=== PATIENT | female | born 1980 | race Hispanic/Latino ===

== ENCOUNTER 2017-04-15 21:16 | Emergency (ER) | payer BC, OTHER ==
[2017-04-15 23:12] LABS: Hematocrit 29.7 % (30.3-42.9); Hemoglobin 9.8 gm/dl (10.1-14.3); Mean Corpuscular HGB Conc 33 % (30-34); Mean Corpuscular Hemoglobin 27 pg (28-32); Mean Corpuscular Volume 82 fl (79-97); Platelet Count 201 K/mm3 (140-440); Red Blood Count 3.64 M/mm3 (3.65-5.03); Red Cell Distribution Width 17.1 % (13.2-15.2); White Blood Count 4.7 K/mm3 (4.5-11.0)
[2017-04-15 23:25] LABS: Anion Gap 14 mmol/L; Blood Urea Nitrogen 12 mg/dL (7-17); Carbon Dioxide 31 mmol/L (22-30); Chloride 101.6 mmol/L (98-107); Glucose 78 mg/dL (65-100); Potassium 4.1 mmol/L (3.6-5.0); Sodium 142 mmol/L (137-145)
[2017-04-15 23:40] LABS: Bacteria,Urine 1+ /HPF (Negative); Bilirubin,Urine NEG (Negative); Blood,Urine NEG (Negative); Ketones,Urine NEG (Negative); Leukocyte Esterase,Urine TR (Negative); Mucus,Urine 2+ /HPF; Nitrite,Urine NEG (Negative); Urobilinogen,Urine < 2.0 mg/dL (<2.0)
[2017-04-16] MEDS ORDERED: LASIX PO ONE (03:08)
[2017-04-16 03:23] LABS: Alanine Aminotransferase 17 units/L (7-56); Albumin 3.8 g/dL (3.9-5); Alkaline Phosphatase 65 units/L (35-129); Total Protein 7.6 g/dL (6.3-8.2)
[2017-04-16] MEDS ORDERED: TORADOL IM ONE (03:36)
[2017-04-16 03:42] LABS: Bilirubin,Direct < 0.2 mg/dL (0-0.2)
--- NOTE | 2017-04-16 03:51 | Emergency Department Report ---
ED Extremity Problem HPI - General Chief complaint: Extremity Injury, Lower Stated complaint: FEET AND LEGS SWELLING/HEADACHE/LEG PAIN Time Seen by Provider: 04/16/17 03:01 Source: patient Mode of arrival: Ambulatory Limitations: No Limitations - History of Present Illness Initial comments: 36 yo female the past medical history of heroin abuse presents to the hospital complaining of lower extremity edema 2 weeks. Patient states she has similar swelling earlier this summer but it went away after a few days. Patient denies of leg pain, travel, redness, or history of PE/DVT. Also denies shortness of breath or chest pain. Patient's patient was forced to detox from heroin one- month ago while in correction. Patient also complains of a frontal headache intermittently for the last 2 weeks as well. No reports of nausea, vomiting, abdominal pain, or abdominal distention. Severity scale (0 -10): 4 - Related Data Previous Rx's Medication Instructions Recorded Last Taken Type Doxycycline [Vibramycin CAP] 100 mg PO BID #28 capsule 12/27/14 Unknown Rx methylPREDNISolone [Medrol Dose 8 mg PO QAM #1 tab.ds.pk 12/27/14 Unknown Rx Ralph] Furosemide [Lasix] 20 mg PO QDAY #5 tablet 04/16/17 Unknown Rx Naproxen [Naprosyn TAB] 375 mg PO BID #20 tablet 04/16/17 Unknown Rx Allergies Allergy/AdvReac Type Severity Reaction Status Date / Time No Known Allergies Allergy Unverified 12/27/14 12:40 ED Review of Systems ROS: Stated complaint: FEET AND LEGS SWELLING/HEADACHE/LEG PAIN Other details as noted in HPI Comment: All other systems reviewed and negative Other: Constitutional: No fevers chills Eyes: No eye pain visual changes ENT: No ear pain or throat pain Neck: Denies pain Respiratory: Denies cough wheezing shortness of breath Cardiovascular: Denies chest pain, palpitations, syncope GI: Denies abdominal pain, nausea, vomiting, diarrhea : Denies dysuria, urinary frequency, or urgency. Per triage complains of intermittent vaginal spotting and a Mirena that is 3 years overdue for removal MSK: As per HPI Skin: Denies rash, lesions, erythema Neurologic: Denies headache, numbness, weakness Psychiatric: Denies suicidal ideation, hallucinations ED Past Medical Hx - Past Medical History Previous Medical History?: Yes Additional medical history: detoxed off of Heroin 1 month ago - Social History Smoking Status: Current Every Day Smoker - Medications Home Medications: Home Medications Medication Instructions Recorded Confirmed Last Taken Type Doxycycline [Vibramycin CAP] 100 mg PO BID #28 capsule 12/27/14 Unknown Rx methylPREDNISolone [Medrol Dose 8 mg PO QAM #1 tab.ds.pk 12/27/14 Unknown Rx Ralph] Furosemide [Lasix] 20 mg PO QDAY #5 tablet 04/16/17 Unknown Rx Naproxen [Naprosyn TAB] 375 mg PO BID #20 tablet 04/16/17 Unknown Rx ED Physical Exam - General Limitations: No Limitations - Other Other exam information: General: No limitations, patient is alert in no acute distress Head exam: Atraumatic, normocephalic Eyes exam: Normal appearance ENT: Moist mucous membrane, normal oropharynx Neck exam: Normal inspection, full range of motion, no meningismus nontender Respiratory exam: Clear to auscultation bilateral, no wheezes, rales, crackles Cardiovascular: Normal rate and rhythm, normal heart sounds Abdomen: Soft, nondistended, and nontender, with normal bowel sounds, no rebound, or guarding Extremity: Bilateral lower extremity edema worse at feet and ankle. Nonpitting , no calf tenderness, no erythema or warmth Back: Normal Inspection, full range of motion, no tenderness Neurologic: Patient initially drowsy and needed persistent arousal. She is to stay she has not used narcotics recently, oriented x3, cranial nerves intact, no motor or sensory deficit Psychiatric: normal affect, normal mood Skin: Warm, dry, intact ED Course Vital Signs 04/15/17 04/16/17 21:55 02:18 Temperature 98.7 F Pulse Rate 92 H 93 H Respiratory 18 18 Rate Blood Pressure 114/64 Blood Pressure 114/64 [Right] O2 Sat by Pulse 98 99 Oximetry - Reevaluation(s) Reevaluation #1: 04/16/17 04:12 Patient received by mouth Lasix IM Toradol ED Medical Decision Making - Lab Data Result diagrams: 04/15/17 22:34 04/15/17 22:34 Lab Results 04/15/17 04/15/17 04/15/17 Range/Units 22:34 22:34 22:46 WBC 4.7 (4.5-11.0) K/mm3 RBC 3.64 L (3.65-5.03) M/mm3 Hgb 9.8 L (10.1-14.3) gm/dl Hct 29.7 L (30.3-42.9) % MCV 82 (79-97) fl MCH 27 L (28-32) pg MCHC 33 (30-34) % RDW 17.1 H (13.2-15.2) % Plt Count 201 (140-440) K/mm3 Sodium 142 (137-145) mmol/L Potassium 4.1 (3.6-5.0) mmol/L Chloride 101.6 (98-107) mmol/L Carbon Dioxide 31 H (22-30) mmol/L Anion Gap 14 mmol/L BUN 12 (7-17) mg/dL Creatinine 0.5 L (0.7-1.2) mg/dL Estimated GFR > 60 ml/min BUN/Creatinine Ratio 24.00 % Glucose 78 (65-100) mg/dL Calcium 9.0 (8.4-10.2) mg/dL Total Bilirubin (0.1-1.2) mg/dL Direct Bilirubin (0-0.2) mg/dL Indirect Bilirubin mg/dL AST (5-40) units/L ALT (7-56) units/L Alkaline Phosphatase (35-129) units/L Total Protein (6.3-8.2) g/dL Albumin (3.9-5) g/dL Albumin/Globulin Ratio % HCG, Qual (Negative) Urine Color Yellow (Yellow) Urine Turbidity Clear (Clear) Urine pH 5.0 (5.0-7.0) Ur Specific [place] 1.027 (1.003-1.030) Urine Protein 30 mg/dl (Negative) mg/dL Urine Glucose (UA) Neg (Negative) mg/dL Urine Ketones Neg (Negative) mg/dL Urine Blood Neg (Negative) Urine Nitrite Neg (Negative) Urine Bilirubin Neg (Negative) Urine Urobilinogen < 2.0 (<2.0) mg/dL Ur Leukocyte Esterase Tr (Negative) Urine WBC (Auto) 8.0 H (0.0-6.0) /HPF Urine RBC (Auto) 2.0 (0.0-6.0) /HPF U Epithel Cells (Auto) 9.0 (0-13.0) /HPF Urine Bacteria (Auto) 1+ (Negative) /HPF Calcium Oxalate Crystal 2+ Urine Mucus 2+ /HPF 07/23/17 07/24/17 Range/Units 22:46 03:10 WBC (4.5-11.0) K/mm3 RBC (3.65-5.03) M/mm3 Hgb (10.1-14.3) gm/dl Hct (30.3-42.9) % MCV (79-97) fl MCH (28-32) pg MCHC (30-34) % RDW (13.2-15.2) % Plt Count (140-440) K/mm3 Sodium (137-145) mmol/L Potassium (3.6-5.0) mmol/L Chloride (98-107) mmol/L Carbon Dioxide (22-30) mmol/L Anion Gap mmol/L BUN (7-17) mg/dL Creatinine (0.7-1.2) mg/dL Estimated GFR ml/min BUN/Creatinine Ratio % Glucose (65-100) mg/dL Calcium (8.4-10.2) mg/dL Total Bilirubin 0.20 (0.1-1.2) mg/dL Direct Bilirubin < 0.2 (0-0.2) mg/dL Indirect Bilirubin 0.0 mg/dL AST 22 (5-40) units/L ALT 17 (7-56) units/L Alkaline Phosphatase 65 (35-129) units/L Total Protein 7.6 (6.3-8.2) g/dL Albumin 3.8 L (3.9-5) g/dL Albumin/Globulin Ratio 1.0 % HCG, Qual Negative (Negative) Urine Color (Yellow) Urine Turbidity (Clear) Urine pH (5.0-7.0) Ur Specific [place] (1.003-1.030) Urine Protein (Negative) mg/dL Urine Glucose (UA) (Negative) mg/dL Urine Ketones (Negative) mg/dL Urine Blood (Negative) Urine Nitrite (Negative) Urine Bilirubin (Negative) Urine Urobilinogen (<2.0) mg/dL Ur Leukocyte Esterase (Negative) Urine WBC (Auto) (0.0-6.0) /HPF Urine RBC (Auto) (0.0-6.0) /HPF U Epithel Cells (Auto) (0-13.0) /HPF Urine Bacteria (Auto) (Negative) /HPF Calcium Oxalate Crystal Urine Mucus /HPF - Medical Decision Making No signs of renal or liver failure. Mild decrease in albumen low normal. Patient be put on Lasix for 5 days and encouraged to elevate feet and follow-up with primary care doctor. Patient is not having signs of outpatient follow with [employer] will be encouraged for removal of her Mirena - Differential Diagnosis renal failure, liver failure, heart failure, lymphedema Critical Care Time: No Critical care attestation.: If time is entered above; I have spent that time in minutes in the direct care of this critically ill patient, excluding procedure time. ED Disposition Clinical Impression: Bilateral leg edema, Headache Disposition: TO HOME OR SELFCARE Is pt being admited?: No Does the pt Need Aspirin: No Condition: Stable Instructions: Leg Edema (ED), Acute Headache (ED) Additional Instructions: Keep her legs elevated. Follow up with your primary care doctor for further management. Return if symptoms worsen. Follow up with the [employer] doctor for management of your Mirena Prescriptions: Furosemide [Lasix] 20 mg PO QDAY #5 tablet Naproxen [Naprosyn TAB] 375 mg PO BID #20 tablet Referrals: RUPA MURGUIA MD [Staff Physician] - 3-5 Days [facility] [Provider Group] - 3-5 Days JAYESH STARKEY MD [Staff Physician] - 3-5 Days Time of Disposition: 04:15
[2017-04-16 04:28] VITALS: BP 106/57
== END 2017-04-16 04:27 | disposition home or self-care (01) ==
LOC: ED 21:16
DX: R60.9 Edema, unspecified (principal); R51 Headache; F17.210 Nicotine dependence, cigarettes, uncomplicated
CPT/HCPCS: 36415; 80048; 80074; 81001; 84703; 85027; 99283; J1885